=== PATIENT | male | born 1985 | race Caucasian/White ===

== ENCOUNTER 2017-07-03 15:00 | Emergency (ER) | payer OTHER ==
--- NOTE | 2017-07-03 15:08 | PDOC ---
History of Present Illness - General History Source: Patient Exam Limitations: No Limitations - History of Present Illness Initial Comments: 07/03/17 15:22 The patient is a 31 year old male with no significant past medical history who presents to the ED s/p fall yesterday. Patient complains of right hand pain and swelling. Patient denies head trauma, back pain, neck pain. Patient denies taking any medications for alleviation. Patient denies any other alleviating factors or worsening factors. Patient denies fever, chills, nausea, vomiting, diarrhea. Patient is otherwise healthy. <Harish Barclay - Last Filed: 07/03/17 15:22> <Karen Moseley - Last Filed: 07/03/17 17:12> - General Chief Complaint: Injury Stated Complaint: RT HAND INJURY Time Seen by Provider: 07/03/17 15:07 Past History <Harish Barclay - Last Filed: 07/03/17 15:22> <Karen Moseley - Last Filed: 07/03/17 17:12> - Past Medical History Allergies/Adverse Reactions: Allergies Allergy/AdvReac Type Severity Reaction Status Date / Time No Known Allergies Allergy Verified 07/03/17 15:06 Home Medications: Ambulatory Orders Ibuprofen 800 mg PO TID PRN #30 tablet 07/03/17 Ibuprofen [Advil -] 200 mg PO ASDIR 07/03/17 Review of Systems - Review of Systems Able to Perform ROS?: Yes Comments:: 07/03/17 15:22 GENERAL/CONSTITUTIONAL: No fever or chills. No weakness. HEAD, EYES, EARS, NOSE AND THROAT: No change in vision. No ear pain or discharge. No sore throat. CARDIOVASCULAR: No chest pain or shortness of breath. RESPIRATORY: No cough, wheezing, or hemoptysis. GASTROINTESTINAL: No nausea, vomiting, diarrhea or constipation. GENITOURINARY: No dysuria, frequency, or change in urination. MUSCULOSKELETAL: + pain and swelling to the 4th and 5th digits of the right hand. SKIN: No rash NEUROLOGIC: No headache, vertigo, loss of consciousness, or change in strength/ sensation. ENDOCRINE: No increased thirst. No abnormal weight change. HEMATOLOGIC/LYMPHATIC: No anemia, easy bleeding, or history of blood clots. ALLERGIC/IMMUNOLOGIC: No hives or skin allergy. <Harish Barclay - Last Filed: 07/03/17 15:22> *Physical Exam - Vital Signs Last Vital Signs Temp Pulse Resp BP Pulse Ox 97.7 F 77 18 118/71 98 07/03/17 15:00 07/03/17 15:00 07/03/17 15:00 07/03/17 15:00 07/03/17 15:00 - Physical Exam Comments: 07/03/17 15:23 GENERAL: Awake, alert, and fully oriented, in no acute distress HEAD: No signs of trauma EXTREMITIES: Right hand: Swelling and tenderness over the 4th and 5th mcp joint and dorsum of hand. Full ROM of the PIP DIP joints of 4th and 5th digits. In- cat radial and ulnar pulses. Intact sensation over the distribution of ulnar nerve.Full ROM of the wrist. Rest of extremities are normal. NEUROLOGICAL: Cranial nerves II through XII grossly intact. Normal speech, normal gait SKIN: Warm, Dry, normal turgor, no rashes or lesions noted. <Harish Barclay - Last Filed: 07/03/17 15:22> Medical Decision Making - Medical Decision Making 07/03/17 16:33 Pt presents to the ED complaining of R hand pain and swelling in the region of the R 5th MCP joint. Intact ulnar sensation and function. Will discuss with orthopedics--likely will splint with ulnar gutter and have patient follow up with orthopedics. 07/03/17 17:10 Case discussed with ASHLEY Clark, who has looked at the films and feels that the patient is safe to be splinted with an ulnar gutter splint and follow up with Dr. Baum on Tuesday. As per ASHLEY Clark, patient does not need to be immobilized at the MCP joint. Ulnar gutter placed, patient instructed to follow up with Dr. Baum without fail on Tuesday. <Karen Moseley - Last Filed: 07/03/17 17:12> *DC/Admit/Observation/Transfer - Attestations Scribe Attestion: 07/03/17 15:23 Documentation prepared by Harish Barclay, acting as medical record administrator for Karen Moseley MD, MD. <Harish Barclay - Last Filed: 07/03/17 15:22> - Discharge Dispostion Admit: No <Karen Moseley - Last Filed: 07/03/17 17:12> Diagnosis at time of Disposition: Boxers fracture Qualifiers: Encounter type: initial encounter Fracture type: closed Qualified Code(s): S62.339A - Displaced fracture of neck of unspecified metacarpal bone, initial encounter for closed fracture - Discharge Dispostion Condition at time of disposition: Stable - Prescriptions Prescriptions: Ibuprofen 800 mg PO TID PRN #30 tablet PRN Reason: Pain - Referrals Referrals: Sandoval Baum MD [Staff Physician] - - Patient Instructions Printed Discharge Instructions: DI for Boxer's Fracture Additional Instructions: keep the splint on except to shower. Return to the ED for severe pain, cold numb blue fingers or hand, weakness of the hand or fingers. Make sure that you follow up with Dr. Baum on Tuesday. Call the office tomorrow for an appointment. return to the ED if unable to obtain follow up with Dr. Baum. Office number is [phone]. - Post Discharge Activity Work/School Note: Back to Work
[2017-07-03 15:12] VITALS: BP 118/71; PULSE 77; TEMP 97.7; BMI 28.0
== END 2017-07-03 17:24 | disposition home or self-care (01) ==
LOC: FER 15:00
PROC: 2W3CX1Z Immobilization of Right Lower Arm using Splint (ICD-10-PCS; principal; 2017-07-03)
DX: S62.339A Displaced fracture of neck of unspecified metacarpal bone, initial encounter for closed fracture (principal); W18.39XA Other fall on same level, initial encounter; Y93.89 Activity, other specified; Y92.9 Unspecified place or not applicable
CPT/HCPCS: 73110-TC-RT; 73130-TC-RT; 99284-25